=== PATIENT | female | born 1970 | race Caucasian/White ===

== ENCOUNTER → 2020-03-31 10:35 | Outpatient (CLI) | payer OTHER ==
[~2020-03-31 10:35] MED LIST: SYNTHROID150 MCG
== END | disposition home or self-care (01) ==
LOC: RAD 10:35
PROVIDERS: ATTEND Colon & Rectal Surgery
DX: K64.2 Third degree hemorrhoids (principal); K64.4 Residual hemorrhoidal skin tags; K92.1 Melena; R15.9 Full incontinence of feces